=== PATIENT | male | born 1950 | race Asian ===

== ENCOUNTER 2017-06-02 14:29 | Emergency (ER) | payer MEDICARE, MEDICAID ==
[~2017-06-02] VITALS: Ht 157.5 cm; Wt 67.6 kg
[2017-06-02 15:05] VITALS: BP 153/80
[2017-06-02 15:41] LABS: RAPID INFLUENZA A Negative (Negative); RAPID INFLUENZA B Negative (Negative)
[2017-06-02] MEDS ORDERED: PLEASE ENTER ALLERGIES MC SCH (16:30)
[2017-06-02] MEDS ORDERED: DEXAMETHASONE 4 MG TABLET PO ONE (16:30)
== END 2017-06-02 16:52 | disposition home or self-care (01) ==
LOC: ED 16:46
DX: B34.9 Viral infection, unspecified (principal); I10 Essential (primary) hypertension; E11.9 Type 2 diabetes mellitus without complications; F17.210 Nicotine dependence, cigarettes, uncomplicated
CPT/HCPCS: 71046; 82962; 87400; 99285

== ENCOUNTER 2017-06-15 10:32 | Emergency (ER) | payer MEDICARE, MEDICAID ==
[~2017-06-15] VITALS: Ht 157.5 cm; Wt 66.0 kg
[2017-06-15] MEDS ORDERED: METHOCARBAMOL 750 MG TABLET ONE (11:03)
[2017-06-15] MEDS ORDERED: KETOROLAC 30 MG/1 ML ONE (11:03)
[2017-06-15] MEDS ORDERED: METF500T4 PO (11:13)
[2017-06-15] MEDS ORDERED: LISI-167 PO (11:13)
[2017-06-15 11:27] VITALS: BP 129/103
[2017-06-15] MEDS ORDERED: METHOCARBAMOL 500 MG TABLET PO ONE (11:30)
[2017-06-15] MEDS ORDERED: KETOROLAC 30 MG/1 ML IM ONE (11:30)
== END 2017-06-15 11:30 | disposition home or self-care (01) ==
LOC: ED 11:02
DX: S39.012A Strain of muscle, fascia and tendon of lower back, initial encounter (principal); I10 Essential (primary) hypertension; E11.9 Type 2 diabetes mellitus without complications; X58.XXXA Exposure to other specified factors, initial encounter; Y93.89 Activity, other specified; Y92.89 Other specified places as the place of occurrence of the external cause; Y99.8 Other external cause status
CPT/HCPCS: 96372; 99283; J1885

== ENCOUNTER 2018-06-12 13:50 | Emergency (ER) | payer MEDICARE ==
[~2018-06-12] VITALS: Ht 157.5 cm; Wt 64.0 kg
[~2018-06-12 13:50] MED LIST: LISI-167 PO; METF500T17 PO
[2018-06-12 14:24] VITALS: BP 150/98
== END 2018-06-12 14:59 | disposition home or self-care (01) ==
LOC: ED 14:53
DX: L03.012 Cellulitis of left finger (principal); B34.9 Viral infection, unspecified; E11.9 Type 2 diabetes mellitus without complications; Z90.49 Acquired absence of other specified parts of digestive tract; I10 Essential (primary) hypertension
CPT/HCPCS: 99283

== ENCOUNTER 2018-06-15 08:59 | Emergency (ER) | payer MEDICARE, OTHER ==
[~2018-06-15] VITALS: Ht 157.5 cm; Wt 63.2 kg
--- NOTE | 2018-06-15 09:04 | NUR ---
CALLED NO ANSWER.
[2018-06-15 09:06] VITALS: BP 126/80
[2018-06-15] MEDS ORDERED: BACITRACIN ZINC OINT 500U/GM, 0.9 GM ONE (09:43)
== END 2018-06-15 10:20 | disposition home or self-care (01) ==
LOC: ED 09:40
DX: L03.012 Cellulitis of left finger (principal)
CPT/HCPCS: 99283

== ENCOUNTER 2019-12-03 16:28 | Emergency (ER) | payer SELFPAY ==
[~2019-12-03] VITALS: Ht 157.5 cm; Wt 63.2 kg
[2019-12-03 16:56] VITALS: BP 131/75
== END 2019-12-03 18:24 | disposition home or self-care (01) ==
LOC: ED 18:00
DX: H66.002 Acute suppurative otitis media without spontaneous rupture of ear drum, left ear (principal); H60.502 Unspecified acute noninfective otitis externa, left ear; I10 Essential (primary) hypertension; E11.9 Type 2 diabetes mellitus without complications; Z90.49 Acquired absence of other specified parts of digestive tract
CPT/HCPCS: 99283

== ENCOUNTER 2020-01-14 14:01 | Emergency (ER) | payer MEDICARE ==
[~2020-01-14] VITALS: Ht 157.5 cm; Wt 65.4 kg
--- NOTE | 2020-01-14 14:37 | NUR ---
PT C/O SCRATCHINESS TO CHEST AREA IN THE AFTERNOONS. STATES HE HAS "MINIMIZED" HIS CAFFEINE INTAKE BUT REPORTS DRINKING RED BULL. DENIES PAIN, N/V. RESP EVEN & UNLABORED, SPEECH CLEAR, SKIN WNL.
[2020-01-14 14:41] VITALS: BP 150/75
[2020-01-14] MEDS ORDERED: VITA1CAP PO (14:41)
[2020-01-14] MEDS ORDERED: MULTIVITAMIN (14:41)
[2020-01-14] MEDS ORDERED: CALCIUM (14:41)
--- NOTE | 2020-01-14 15:22 | NUR ---
PT REFUSING XR. DISCUSSED TEST; PT UNWILLING TO HAVE XR. AGREED TO LAB WORK. ERP WILL BE NOTIFIED.
[2020-01-14 15:49] LABS: BASOPHILS # (AUTO) 0.02 x10^3/uL (0-0.1); BASOPHILS % (AUTO) 0 % (0-1); EOSINOPHILS # (AUTO) 0.12 x10^3/uL (0-0.4); EOSINOPHILS % (AUTO) 2 % (1-7); LYMPHOCYTES # (AUTO) 1.85 x10^3/uL (1-3.4); LYMPHOCYTES % (AUTO) 27 % (22-44); MD NO; MEAN CORPUSCULAR HEMOGLOBIN 30.7 pg (27.5-34.5); MEAN CORPUSCULAR HGB CONC 32.2 g/dL (33.2-36.2); MEAN CORPUSCULAR VOLUME 95.4 fL (81-97); MEAN PLATELET VOLUME 7.8 fL (7.4-10.4); MONOCYTES # (AUTO) 0.71 x10^3/uL (0.2-0.8); MONOCYTES % (AUTO) 10 % (2-9); NEUTROPHILS # (AUTO) 4.27 x10^3/uL (1.8-6.8); NEUTROPHILS % (AUTO) 61 % (42-75); PLATELET COUNT 200 x10^3/uL (130-400); RED BLOOD COUNT 4.58 x10^6/uL (4.38-5.82); RED CELL DISTRIBUTION WIDTH 13.1 % (9.4-14.8)
[2020-01-14 15:56] LABS: CHLORIDE 107 mmol/L (98-107)
[2020-01-14 16:05] LABS: ALANINE AMINOTRANSFERASE 20 U/L (12-78); ALBUMIN 3.9 g/dL (3.4-5.0); ALKALINE PHOSPHATASE 133 U/L (45-117); ANION GAP 6 mmol/L (5-15); BILIRUBIN,TOTAL 0.4 mg/dL (0.2-1.0); CALCIUM 8.3 mg/dL (8.5-10.1); CREATININE 1.19 mg/dL (0.7-1.3); TOTAL PROTEIN 7.1 g/dL (6.4-8.2); TROPONIN I < 0.015 ng/mL (0.000-0.045)
--- NOTE | 2020-01-14 16:30 | NUR ---
DR BALL AT BS.
--- NOTE | 2020-01-14 16:57 | NUR ---
PT LEFT PRIOR TO RECEIVING DC INSTRUCTIONS.
== END 2020-01-14 16:56 ==
LOC: ED 15:40
DX: R07.89 Other chest pain (principal); R94.31 Abnormal electrocardiogram [ECG] [EKG]; E11.9 Type 2 diabetes mellitus without complications; Z90.49 Acquired absence of other specified parts of digestive tract; Z87.891 Personal history of nicotine dependence
CPT/HCPCS: 36415; 80053; 84484; 85025; 93005; 99284